=== PATIENT | male | born 1950 | race Caucasian/White ===

== ENCOUNTER → 2021-08-19 | Outpatient (CLI) | payer MEDICARE, MEDICAID, SELFPAY | END | disposition home or self-care (01) | PROVIDERS: PCP Nurse Practitioner; Referring Provider Nurse Practitioner; Visit Provider Nurse Practitioner | DX: N63.10 Unspecified lump in the right breast, unspecified quadrant (principal) ==

== ENCOUNTER 2025-05-20 09:17 | Outpatient (AMB) | payer MEDICARE, MEDICAID, SELFPAY ==
--- NOTE | 2025-05-20 09:27 | GSCOFFNT_ITS ---
[facility] - [facility] 05/20/25 09:28 Height 1.83 m Height Method Measured Weight 123.944 kg Weight Measurement Method Standing Scale BMI 37.0 BP 165/66 H Blood Pressure Source Automatic Cuff Blood Pressure Location Left Upper Arm Position Sitting Respiration 18 Pulse 69 Pulse Source Monitor Temp 98.4 F Temp Source Temporal Artery Scan Pulse Oximetry (%) 97 Oxygen Delivery Method Room Air Med/Allergies Allergies & Medications Allergies No Known Allergies Allergy (Verified 05/20/25 09:29) Medication Reconciliation aspirin 81 mg chewable tablet (Aspirin Childrens) 81 mg PO QDAY ##0 10/06/16 [History Confirmed 05/20/25] levothyroxine 200 mcg tablet 200 mcg PO QDAY #0 tabs 10/06/16 [History Confirmed 05/20/25] glipizide 10 mg tablet 10 mg PO BID #0 tabs 12/03/16 [History Confirmed 05/20/25] omeprazole 40 mg capsule,delayed release 40 mg PO QDAY 06/20/19 [History Confirmed 05/20/25] tamsulosin 0.4 mg capsule 0.4 mg PO QHS 05/04/21 [History Confirmed 05/20/25] clopidogrel 75 mg tablet (Plavix) 75 mg PO QDAY 12/06/22 [History Confirmed 05/20/25] MA Intake Visit Data Collection New Patient or Established: New Patient (never been to [facility]) Seen by Clinical Staff ONLY (RN/MA): No Reason for Visit:: REFERRAL HEMORRHOIDS Pain Present Currently: No Cloth Desizing Range Tender Required: No PCP or OBGYN visit in last 3 months: Yes Hx Now: No Do You Feel Safe at Home: Yes Authorities Contacted: N/A Smoking Status Smoking Status: Former smoker Immunization / Flu Flu Vaccine in the Last 12 Months: No Flu Vaccine Exclusion Criteria: Refused by Patient Past Medical History Past Medical History NEUROLOGIC: Negative Neurological Disorders or Seizures CARDIAC: Positive Cardiac Disorders, Hypercholesterolemia and Hypertension; Negative Congestive Heart Failure, Edema, Cellulitis or Varicose Veins RESPIRATORY: Negative Chronic Obstructive Pulmonary Disease (COPD), Asthma, Tuberculosis or Sleep Apnea GASTROINTESTINAL: Positive Gastrointestinal Disorders, Gall Bladder Disease (FOR THIS PROC), Gastroesophageal Reflux Disease and Obesity; Negative Hepatitis or Ulcer GENITOURINARY: Positive Genitourinary Disorders, Renal Disease (BEING OBSERVE) and Kidney Stones MUSCULOSKELETAL: Positive Arthritis ENT: Positive Cataracts (bilateral) ENDOCRINE: Positive Endocrine Disorders, Diabetes Mellitus Type 2 (TAKES PO AND SUB Q HAS EDDIE 2 MACHINE) and Hypothyroidism (TAKES MED); Negative Diabetes Mellitus Type 1 HEMATOLOGIC: Negative Blood Disorders, Anemia or Sickle Cell Disease PSYCHO/SOCIAL: Positive Anxiety OTHER HISTORY: Positive Chicken Pox, Measles, Mumps and Cancer (thyroid HAD THYROIDECTOMY); Negative Hospitalization, Autoimmune Disease, Shingles, Falls, Blood Transfusions, Blood Transfusion Reaction, Anesthesia Reactions, Chemotherapy or Radiation Therapy Family History FAMILY HISTORY: Negative Family Psychiatric Problems, Family Respiratory Disorders, Family Cardiac Disorders (UNKNOWN), Family Gastrointestinal Problems, Family Cancer, Family Surgery or Family Anesthesia Reaction Surgical History SURGICAL: Positive Coronary Stent (X1), Angiogram, Thyroidectomy (TOTAL), Eye Surgery (bilat) and Joint Replacement (ZEB KNEE); Negative Pacemaker Social History SMOKING STATUS: Smoking status: Former smoker ALCOHOL: Alcohol Intake: Former HOUSING: Housing: House HPI HPI Narrative 75M with CAD s/p stenting on ASA and plavix, DMII, hypothyroidism, BPH referred for symptomatic hemorrhoid. Pt notes he has a protruding hemorrhoid which he is able to reduce into the anal canal but tends to prolapse again, and he denies any pain/bleeding/itching but does find it difficult to keep the area as clean as he would like. Pt states that in the past he had banding done, he believes it was to the same hemorrhoidal column and after that he had no episodes of bleeding. At baseline pt states his BMs are somewhat loose but he recently had to take antibiotics and found that stools became even looser, and now that he has completed those antibiotics the stools are more formed and he does not have any straining. Pt is not currently using any remedies for the hemorrhoid Pt states he last had EGD/colonoscopy approximately 10 years ago. He was told that he had five lesions repaired during the colonoscopy, and does not believe there was any mention of polyps at the time. He also notes some discomfort at his umbilicus, believes he has a hernia there but denies any episodes of nausea/vomiting related to it PMH: CAD, hypothyroidism, DMII, BPH PSHx: Cholecystectomy, hernia repairs, coronary stenting Meds: includes ASA 81mg, plavix, glipizide, tamsulosin, lantus (pt notes he does not take it every day) Allergies: NKDA Family hx: No known CRC in first degree relatives ROS Review of Systems Systems Reviewed: All systems reviewed, normal except as documented Objective/Exam General General Appearance: alert, cooperative and well groomed Resp Respiratory exam: Absent respiratory distress Abdominal Abdominal exam: Present soft, tenderness (mild tenderness at umbilical hernia) and hernia (umbilical hernia with no overlying skin changes); Absent distention Rectal Rectal exam: Present other (external hemorrhoidal skin tag at the anterior midline of the anus, no bleeding or tenderness) Assessment & Plan Diagnosis / Problem List (1) Hemorrhoidal skin tag: Status: Acute Assessment & Plan: 75M with hemorrhoidal skin tag which pt reports is bothersome in terms of hygiene but not painful or itchy and has not had any bleeding. Pt stated he was hoping for an in-office procedure to remove it but I explained that due to the painful nature of surgery as well as the high likelihood of bleeding requiring electrocautery I only perform this type of procedure in the operating room. I also would recommend colonoscopy at the time of surgery, and pt prefers not to pursue that as he does not believe surgery can be curative for cancer (despite my mentioning of the relevant research on this matter). As the hemorrhoid is not very bothersome pt prefers to hold off on any procedure for now (2) Umbilical hernia: Status: Acute Assessment & Plan: Pt has some discomfort associated with his umbilical hernia but again is not i nterested in pursuing surgery at this time. I explained that hernias can recur after any type of surgery and recurrence is more likely with an elevated BMI; pt does have plans to change his diet and lose weight so is agreeable to following up in 3 mos to further discuss (3) Encounter for screening colonoscopy for [id number] patient: Status: Acute Assessment & Plan: Pt declined colonoscopy as he does not believe that there are any effective treatments for colon CA. I did explain that colorectal can be treated/cured in many cases and also explained that the main benefit of colonoscopy is cancer prevention, as well as the risks of colonoscopy including bleeding and perforation requiring emergency surgery. He continued to decline the procedure Advanced Care Planning Advance care planning discussed with:: other Office Procedures GNS Level of Care Nursing/Assessment Patient Status: Initial/New Patient Nursing Assessment/Reassesment: Medication Reconciliation, Update PMH in EMR and Vital Signs Coordination of Care: Complex Care and Chronic Disease 1-5, Consent,records obtained, informed consent, Education Simp Pt/Fam, Lab and Imaging orders, Results/Orders obtained and Staff clarify orders New Patient Charge New Patient Point Assignment: [id number] New Patient Point Charge: PROGRAM CLINICIAN Level 3 ([id number]) Patient Portal Questionaires Social History Living Situation History Housing: House Tobacco History Smoking Status: Former smoker Alcohol History Alcohol Intake: Former Domestic Abuse History Do You Feel Safe at Home: Yes Review of Systems Report any current symptoms Only answer those that you have currently: Past Medical History Past Medical History Have you ever been diagnosed with any of the following: Neurological Problems Seizures: No Cardiology Problems Hypercholesterolemia: Yes Congestive Heart Failure: No Edema: No Cellulitis: No Hypertension: Yes Varicose Veins: No Respiratory Problems Chronic Obstructive Pulmonary Disease (COPD): No Asthma: No Tuberculosis: No Sleep Apnea: No Stomache/Intestinal Problems Hepatitis: No Gall Bladder Disease: Yes (FOR THIS PROC) Ulcer: No Gastroesophageal Reflux Disease: Yes Obesity: Yes Genital/Urinary Problems Renal Disease: Yes (BEING OBSERVE) Kidney Stones: Yes Musculoskeletal Problems Arthritis: Yes Head,Eye,Nose,Throat Problems Cataracts: Yes (bilateral) Endocrine Problems Diabetes Mellitus Type 1: No Diabetes Mellitus Type 2: Yes (TAKES PO AND SUB Q HAS EDDIE 2 MACHINE) Hypothyroidism: Yes (TAKES MED) Blood Problems Anemia: No Sickle Cell Disease: No Psychologic Problems Anxiety: Yes Other Problems Hospitalization: No Autoimmune Disease: No Shingles: No Falls: No Blood Transfusions: No Blood Transfusion Reaction: No Anesthesia Reactions: No Chemotherapy: No Radiation Therapy: No Chicken Pox: Yes Measles: Yes Mumps: Yes Cancer: Yes (thyroid HAD THYROIDECTOMY) Surgical History Pacemaker: No Thyroidectomy: Yes (TOTAL)
[2025-05-20 09:28] VITALS: BP 165/66; PULSE 69; RESP 18; TEMP 36.9; O2SAT 97; BMI 37.0
== END 2025-05-20 10:10 | disposition home or self-care (01) ==
PROVIDERS: Supervising Provider Surgery; Visit Provider Surgery
DX: K64.4 Residual hemorrhoidal skin tags (principal); K42.9 Umbilical hernia without obstruction or gangrene; Z12.11 Encounter for screening for malignant neoplasm of colon; I10 Essential (primary) hypertension; E78.00 Pure hypercholesterolemia, unspecified; K21.9 Gastro-esophageal reflux disease without esophagitis; E11.9 Type 2 diabetes mellitus without complications; E03.9 Hypothyroidism, unspecified; N40.0 Benign prostatic hyperplasia without lower urinary tract symptoms
CPT/HCPCS: 99203; G0463

== ENCOUNTER → 2025-07-18 | Outpatient (BNVA) | payer MEDICARE, MEDICAID, SELFPAY | END | disposition home or self-care (01) | PROVIDERS: PCP Nurse Practitioner Family; Referring Provider Nurse Practitioner Family; Visit Provider Urology | DX: R97.20 Elevated prostate specific antigen [PSA] (principal); I12.9 Hypertensive chronic kidney disease with stage 1 through stage 4 chronic kidney disease, or unspecified chronic kidney disease; E11.22 Type 2 diabetes mellitus with diabetic chronic kidney disease; N18.30 Chronic kidney disease, stage 3 unspecified; Z71.3 Dietary counseling and surveillance; E66.9 Obesity, unspecified; Z68.38 Body mass index [BMI] 38.0-38.9, adult; Z85.850 Personal history of malignant neoplasm of thyroid; R31.9 Hematuria, unspecified | CPT/HCPCS: 81003; 99212; G0463 ==

== ENCOUNTER 2025-09-02 13:37 | Outpatient (AMB) | payer MEDICARE, MEDICAID, SELFPAY ==
[2025-09-02 14:02] VITALS: BP 135/67; PULSE 73; RESP 18; TEMP 36.5; O2SAT 96; BMI 39.9
--- NOTE | 2025-09-02 14:02 | GSCOFFNT_ITS ---
Vital Signs - [facility] 09/02/25 14:02 Height 1.83 m Height Method Stated Weight 133.923 kg Weight Measurement Method Standing Scale BMI 39.9 BP 135/67 H Blood Pressure Source Automatic Cuff Blood Pressure Location Left Upper Arm Position Sitting Respiration 18 Pulse 73 Pulse Source Monitor Temp 97.7 F Temp Source Temporal Artery Scan Pulse Oximetry (%) 96 Oxygen Delivery Method Room Air Med/Allergies Allergies & Medications Allergies No Known Allergies Allergy (Verified 09/02/25 14:03) Medication Reconciliation aspirin 81 mg chewable tablet (Aspirin Childrens) 81 mg PO QDAY ##0 10/06/16 [History Confirmed 09/02/25] levothyroxine 200 mcg tablet 200 mcg PO QDAY #0 tabs 10/06/16 [History Confirmed 09/02/25] glipizide 10 mg tablet 10 mg PO BID #0 tabs 12/03/16 [History Confirmed 09/02/25] omeprazole 40 mg capsule,delayed release 40 mg PO QDAY 06/20/19 [History Confirmed 09/02/25] clopidogrel 75 mg tablet (Plavix) 75 mg PO QDAY 12/06/22 [History Confirmed 09/02/25] tamsulosin 0.4 mg capsule 0.8 mg PO QHS 07/18/25 [History Confirmed 09/02/25] MA Intake Visit Data Collection Seen by Clinical Staff ONLY (RN/MA): No Reason for Visit:: REFERRAL HEMORRHOIDS Pain Present Currently: No Wet Char Conveyor Tender Required: No PCP or OBGYN visit in last 3 months: Yes Hx Now: No Do You Feel Safe at Home: Yes Authorities Contacted: N/A Smoking Status Smoking Status: Former smoker Immunization / Flu Flu Vaccine in the Last 12 Months: No Flu Vaccine Exclusion Criteria: Refused by Patient Past Medical History Past Medical History NEUROLOGIC: Negative Neurological Disorders or Seizures CARDIAC: Positive Cardiac Disorders, Hypercholesterolemia and Hypertension; Negative Congestive Heart Failure, Edema, Cellulitis or Varicose Veins RESPIRATORY: Negative Chronic Obstructive Pulmonary Disease (COPD), Asthma, Tuberculosis or Sleep Apnea GASTROINTESTINAL: Positive Gastrointestinal Disorders, Gall Bladder Disease (FOR THIS PROC), Gastroesophageal Reflux Disease and Obesity; Negative Hepatitis or Ulcer GENITOURINARY: Positive Genitourinary Disorders, Renal Disease (BEING OBSERVE) and Kidney Stones MUSCULOSKELETAL: Positive Arthritis ENT: Positive Cataracts (bilateral) ENDOCRINE: Positive Endocrine Disorders, Diabetes Mellitus Type 2 (TAKES PO AND SUB Q HAS EDDIE 2 MACHINE) and Hypothyroidism (TAKES MED); Negative Diabetes Mellitus Type 1 HEMATOLOGIC: Negative Blood Disorders, Anemia or Sickle Cell Disease PSYCHO/SOCIAL: Positive Anxiety OTHER HISTORY: Positive Chicken Pox, Measles, Mumps and Cancer (thyroid HAD THYROIDECTOMY); Negative Hospitalization, Autoimmune Disease, Shingles, Falls, Blood Transfusions, Blood Transfusion Reaction, Anesthesia Reactions, Chemotherapy or Radiation Therapy Family History FAMILY HISTORY: Negative Family Psychiatric Problems, Family Respiratory Disorders, Family Cardiac Disorders (UNKNOWN), Family Gastrointestinal Problems, Family Cancer, Family Surgery or Family Anesthesia Reaction Surgical History SURGICAL: Positive Coronary Stent (X1), Angiogram, Thyroidectomy (TOTAL), Eye Surgery (bilat) and Joint Replacement (ZEB KNEE); Negative Pacemaker Social History SMOKING STATUS: Smoking status: Former smoker ALCOHOL: Alcohol Intake: Former HOUSING: Housing: House HPI HPI Narrative 75M with hemorrhoidal skin tag and recurrent incisional hernia here for follow up. At last visit pt preferred to hold off any intervention for the hemorrhoid as it is not painful though he still feels it is bothersome. He also is bothered by his hernia which he states has been repaired at least once with mesh. He acknowledges that weight loss is necessary before any elective surgery and yet admits that he has gained 50 pounds. Since last visit he had followed up with Dr. Kemp and was found to have an elevated PSA, is planned for a biopsy. Today he did request EGD and colonoscopy ROS Review of Systems Systems Reviewed: All systems reviewed, normal except as documented Objective/Exam General General Appearance: alert, cooperative and well groomed Resp Respiratory exam: Absent respiratory distress Abdominal Abdominal exam: Present soft, tenderness (mild tenderness at umbilical hernia) and hernia (umbilical hernia with no overlying skin changes); Absent distention Assessment & Plan Diagnosis / Problem List (1) Hemorrhoidal skin tag: Status: Acute Assessment & Plan: I again explained that hemorrhoidectomy can be performed in the operating room, however is likely to cause significant pain, postoperative bleeding/discharge and at least initially, difficulty in urinating potentially requiring a Carlin catheter. Patient states he had banding surgery before and seems somewhat focused on having this done again although I explained that it is not appropriate for external hemorrhoids. I also offered that if he does want to have colonoscopy as well as hemorrhoidectomy these procedures can be performed together. Patient was somewhat disappointed that he cannot also have an EGD at the same time, however I am not sure if EGD is indicated for him. I have provided colonoscopy prep instructions and patient will reach out after undergoing his prostate workup (2) Umbilical hernia: Status: Acute Assessment & Plan: Pt has some discomfort associated with his umbilical hernia but has had multiple repairs with mesh done in an open fashion. I explained that weight loss for goal of BMI less than 35 is important for minimizing recurrence, but that also because this is a redo surgery he would best be served by undergoing minimally invasive surgery, either robotic or laparoscopic. Pt will first follow up his urology evaluation Advanced Care Planning Advance care planning discussed with:: patient Office Procedures GNS Level of Care Nursing/Assessment Patient Status: Established Patient Nursing Assessment/Reassesment: Medication Reconciliation, Update PMH in EMR and Vital Signs Coordination of Care: Complex Care and Chronic Disease 1-5, Consent,records obtained, informed consent, Education Simp Pt/Fam, Results/Orders obtained and Staff clarify orders Established Patient Charge Established Patient Point Assignment: 90 Established Patient Point Charge: EP Level 3 (80-115) Patient Portal Questionaires Social History Living Situation History Housing: House Tobacco History Smoking Status: Former smoker Alcohol History Alcohol Intake: Former Domestic Abuse History Do You Feel Safe at Home: Yes Review of Systems Report any current symptoms Only answer those that you have currently: Past Medical History Past Medical History Have you ever been diagnosed with any of the following: Neurological Problems Seizures: No Cardiology Problems Hypercholesterolemia: Yes Congestive Heart Failure: No Edema: No Cellulitis: No Hypertension: Yes Varicose Veins: No Respiratory Problems Chronic Obstructive Pulmonary Disease (COPD): No Asthma: No Tuberculosis: No Sleep Apnea: No Stomache/Intestinal Problems Hepatitis: No Gall Bladder Disease: Yes (FOR THIS PROC) Ulcer: No Gastroesophageal Reflux Disease: Yes Obesity: Yes Genital/Urinary Problems Renal Disease: Yes (BEING OBSERVE) Kidney Stones: Yes Musculoskeletal Problems Arthritis: Yes Head,Eye,Nose,Throat Problems Cataracts: Yes (bilateral) Endocrine Problems Diabetes Mellitus Type 1: No Diabetes Mellitus Type 2: Yes (TAKES PO AND SUB Q HAS EDDIE 2 MACHINE) Hypothyroidism: Yes (TAKES MED) Blood Problems Anemia: No Sickle Cell Disease: No Psychologic Problems Anxiety: Yes Other Problems Hospitalization: No Autoimmune Disease: No Shingles: No Falls: No Blood Transfusions: No Blood Transfusion Reaction: No Anesthesia Reactions: No Chemotherapy: No Radiation Therapy: No Chicken Pox: Yes Measles: Yes Mumps: Yes Cancer: Yes (thyroid HAD THYROIDECTOMY) Surgical History Pacemaker: No Thyroidectomy: Yes (TOTAL)
== END 2025-09-02 14:58 | disposition home or self-care (01) ==
PROVIDERS: PCP Nurse Practitioner Family; Referring Provider Nurse Practitioner Family; Supervising Provider Surgery; Visit Provider Surgery
DX: K64.4 Residual hemorrhoidal skin tags (principal); K42.9 Umbilical hernia without obstruction or gangrene; I10 Essential (primary) hypertension; E66.9 Obesity, unspecified; Z68.39 Body mass index [BMI] 39.0-39.9, adult; Z87.891 Personal history of nicotine dependence
CPT/HCPCS: 99213; G0463